=== PATIENT | male | born 1935 | race Caucasian/White ===

== ENCOUNTER 2019-02-24 09:24 | Day surgery (SDC) | payer MEDICARE, OTHER | END 2019-02-24 10:10 | disposition home or self-care (01) | LOC: GIL 09:24 | DX: R10.9 Unspecified abdominal pain (principal); Z53.8 Procedure and treatment not carried out for other reasons ==

== ENCOUNTER 2019-06-01 10:08 | Day surgery (SDC) | payer MEDICARE, OTHER | END 2019-06-01 14:11 | disposition home or self-care (01) | LOC: GIL 10:08 | DX: D12.3 Benign neoplasm of transverse colon (principal); K64.8 Other hemorrhoids; D50.9 Iron deficiency anemia, unspecified; K57.30 Diverticulosis of large intestine without perforation or abscess without bleeding; K44.9 Diaphragmatic hernia without obstruction or gangrene; K21.9 Gastro-esophageal reflux disease without esophagitis; I10 Essential (primary) hypertension; I25.10 Atherosclerotic heart disease of native coronary artery without angina pectoris; I25.2 Old myocardial infarction; J44.9 Chronic obstructive pulmonary disease, unspecified; F17.200 Nicotine dependence, unspecified, uncomplicated | CPT/HCPCS: 43239; 88305 ==